=== PATIENT | female | born 1990 | race African-American/Black ===

== ENCOUNTER 2016-07-06 16:22 | Emergency (ER) | payer SELFPAY ==
[~2016-07-06] VITALS: Ht 165.1 cm; Wt 79.0 kg
[~2016-07-06 16:22] MED LIST: MECL25CH PO; TAB-TAB PO
[2016-07-06 16:24] VITALS: BP 115/57; PULSE 74; RESP 15; TEMP 98; O2SAT 100
[2016-07-06] MEDS ORDERED: MOME17I EACH NARE (17:00)
[2016-07-06] MEDS ORDERED: IBUP800T23 PO (17:00)
[2016-07-06] MEDS ORDERED: BENZ100 PO (17:00)
[2016-07-06] MEDS ORDERED: IBUPROFEN 800 MG TAB PO ONE (17:00)
--- NOTE | 2016-07-06 17:00 | PD ---
HPI Chief Complaint: Cold / Flu Symptoms Time Seen by Provider: 16:58 Travel History International Travel<30 days: No Contact w/Intl Traveler<30days: No Traveled to known affect area: No History of Present Illness HPI 26-year-old female presents to the emergency Department with complaint of cough , nasal congestion, body aches 3 days. Denies fever, chills, nausea, vomiting. Denies ear pain or sore throat. Denies wheezing. Denies history of asthma. Denies shortness of breath, chest pain, abdominal pain. Denies change in urine or stool. Has tried taking a cough syrup with no relief of cough. Has not tried any other medications or treatments to alleviate her symptoms. Her daughter is sick with similar symptoms. No known allergies. Denies significant past medical history. No other modifying factors or associated signs and symptoms. PFSH Past Medical History Medical History: Denies Significant Hx Diminished Hearing: No ?: Not LMP: 07/06/16 : 2 Para: 1 Miscarriage: 0 : 0 Past Surgical History Section: Yes (4 MONTHS AGO) Social History Alcohol Use: No Tobacco Use: No Substance Use: No Allergies-Medications (Allergen,Severity, Reaction): Coded Allergies: No Known Allergies (Verified , 07/06/16) Reported Meds & Prescriptions Reported Meds & Active Scripts Active Nasonex Nasal [place] (Mometasone Furoate) 50 Mcg/Act Naspr 2 [place] EACH NARE DAILY PRN Ibuprofen 800 Mg Tab 800 Mg PO Q6HR PRN Tessalon Perles (Benzonatate) 100 Mg Cap 100 Mg PO TID PRN Meclizine Hcl (Meclizine HCl) 25 Mg Chw 25 Mg PO Q8H PRN Reported Multivitamin (Multivitamins) 1 Tab Tab 1 Tab PO DAILY Review of Systems Except as stated in HPI: all other systems reviewed are Neg Physical Exam Narrative GENERAL: Well-nourished, well-developed female patient, in no acute distress SKIN: Warm and dry. No rash. HEAD: Atraumatic. Normocephalic. EYES: Pupils equal and round at 3 mm with brisk reaction. No scleral icterus. No injection or drainage. PERRLA. ENT: Mucosa pink and moist. No erythema or exudates. No uvular edema. No uvular , palatal, or tonsillar deviation. Airway patent. EARS: Bilateral pinnae and external canals appear within normal limits. Bilateral tympanic membranes without erythema, dullness or perforation. NECK: Trachea midline. No lymphadenopathy. CARDIOVASCULAR: Regular rate and rhythm. No murmur appreciated. RESPIRATORY: No accessory muscle use. Clear to auscultation. Breath sounds equal bilaterally. GASTROINTESTINAL: Abdomen soft, non-tender, nondistended. Hepatic and splenic margins not palpable. Bowel sounds are active 4 quadrants. MUSCULOSKELETAL: No obvious deformities. No clubbing. No cyanosis. No edema. NEUROLOGICAL: Awake and alert. Oriented 3. No obvious cranial nerve deficits. Motor grossly within normal limits. Normal speech. Moves all extremities. 5/5 strength to all extremities. PSYCHIATRIC: Appropriate mood and affect; insight and judgment normal. Data Data Last Documented VS Vital Signs Date Time Temp Pulse Resp B/P Pulse Ox O2 Delivery O2 Flow Rate FiO2 07/06/16 16:24 98.0 74 15 115/57 100 Orders Ibuprofen (Motrin) (07/06/16 17:00) [facility] Medical Decision Making Medical Screen Exam Complete: Yes Emergency Medical Condition: Yes Medical Record Reviewed: Yes Differential Diagnosis Viral illness, influenza, bronchitis Narrative Course 26-year-old female physical examination consistent with viral illness. Physical exam is unremarkable. She is afebrile and nontoxic-appearing. She denies fever, chills, nausea, vomiting. I offered to do an influenza screen and the patient declined at this time. Ibuprofen ordered. Discussed viral illness and symptom management the patient verbalized understanding and agreement. Ibuprofen, Tessalon Perles, Nasonex nasal spray prescribed for home. Patient is medically cleared and stable for discharge. Discussed reasons to return to the emergency department. Instructed patient to follow up with primary care provider. Patient agrees with treatment plan. The patients vital signs are stable and the patient is stable for outpatient follow-up and treatment. Patient discharged home, stable and in no acute distress. Diagnosis Primary Impression: Viral illness Referrals: Primary Care Physician Patient Instructions: Cold Symptoms (ED), General Instructions, Safe Use of Cough and Cold Medicines (ED) Departure Forms: Tests/Procedures, Work Release Enter return to work date: Jul 08, 2016 Additional Instructions: Ibuprofen or Tylenol as directed and as needed to reduce fever/pain [id number] antihistamines or decongestants as directed and as needed for symptom management Get plenty of sleep/rest Drink plenty of fluids to prevent dehydration [place] diet to encourage nutrition such as crackers, fruit, applesauce, toast, soup etc. Use an air humidifier/turn off ceiling fans Follow-up with your primary care provider Return immediately to the emergency department with worsening of symptoms Med/Other Pt SpecificInfo: Prescription(s) given Scripts Mometasone Nasal [place] (Nasonex Nasal [place])50 Mcg/Act Naspr2 [place] EACH NARE DAILY PRN (NASAL CONGESTION) #1 BOTTLE Ref 0 Prov:Ying Burton 07/06/16 Ibuprofen 800 Mg [id number] Mg PO Q6HR PRN (PAIN) #30 TAB Ref 0 Prov:Ying Burton 07/06/16 Benzonatate (Tessalon Perles)100 Mg [id number] Mg PO TID PRN (COUGH) #20 CAP Ref 0 Prov:Ying Burton 07/06/16 Disposition: 01 DISCHARGE HOME Condition: Stable Ying Burton Jul 06, 2016 17:00
== END 2016-07-06 17:13 | disposition home or self-care (01) ==
LOC: NEPB 16:22
DX: B34.9 Viral infection, unspecified (principal)
CPT/HCPCS: 99283

== ENCOUNTER 2016-08-16 17:37 | Emergency (ER) | payer SELFPAY ==
[~2016-08-16] VITALS: Ht 165.1 cm; Wt 80.0 kg
[~2016-08-16 17:37] MED LIST changes: +BENZ100 PO; +IBUP800T23 PO; +MOME17I EACH NARE
[2016-08-16 17:38] VITALS: BP 109/57; PULSE 92; RESP 20; TEMP 98.3; O2SAT 97
== END 2016-08-16 21:00 | disposition left against medical advice (07) ==
LOC: NED 17:37
DX: Z53.21 Procedure and treatment not carried out due to patient leaving prior to being seen by health care provider (principal)
CPT/HCPCS: 99281